=== PATIENT | male | born 1950 | race Caucasian/White ===

== ENCOUNTER 2016-08-02 22:47 | Inpatient (IN) | payer OTHER ==
--- NOTE | ~2016-08-02 | HP ---
Unit #: [id number] #: [id number] Patient: TOO MISTRY [id number] [address] [place], [place] [address] [id number] I MR#: [id number] NAME: TOO MISTRY. ROOM: 218 Age: 65 Sex: M Admission Date: 08/03/2016 : 1950 Attending Physician: Rufina Salguero M.D. Primary Care Physician: Simone Locke M.D. HISTORY AND PHYSICAL CHIEF COMPLAINT Right flank pain. HISTORY OF PRESENT ILLNESS The patient is a 65-year-old male with a history of chronic back pain who presents to the ER for above. Patient did abruptly develop some right-sided flank pain approximately 3 p.m. yesterday. The pain has worsened since that time. He describes the pain as sharp stabbing and is worse with movement. He has had some mild associated nausea but no emesis. He states he is very hungry and was tolerating food for the most part. His bowels have been moving normally without any melena or hematochezia. He denies any dysuria, hematuria or change in urinary frequency. He does endorse some intermittent heartburn but not frequently. Pain became so severe he presented to the emergency department at [facility]. Upon presentation to the ER vital signs revealed a mildly elevated blood pressure of 152/90 and pulse rate of 111. CT scan of the abdomen and pelvis revealed an enlarged gallbladder but no stones and no obstruction. CT also revealed some fat stranding around the liver near the duodenum and cirrhotic appearance to the liver. Patient was given 8 mg of morphine and subsequently sent for admission and will not his total bilirubin was elevated at 2.7 but is primarily indirect at 2.1. He also has mild transaminitis. He denies any fever at home. PAST MEDICAL HISTORY Chronic back and neck pain after a fall 16 years ago. He is currently on stability. HOME MEDICATIONS None. ALLERGIES Penicillin. PAST SURGICAL HISTORY None. FAMILY HISTORY Significant for heart disease in patient's brothers. SOCIAL HISTORY He stopped drinking at age 30. He does not smoke. He did previously work as a brush painter prior to disability. REVIEW OF SYSTEMS Unit #: [id number] #: [id number] Patient: TOO MISTRY Just complaining of right-sided flank pain, otherwise ten point review of systems was reviewed extensively and is negative. PHYSICAL EXAMINATION VITAL SIGNS: Temperature 98.2, blood pressure 149/80, pulse rate 102, respiratory rate 16, oxygen saturations are in the mid 90s on room air. GENERAL: Patient is awake, alert, and he is oriented x3. HEENT: Pupils equal, round, reactive to light bilaterally. Anicteric sclerae. No conjunctival pallor. Oropharynx with mildly dry mucous membranes. No erythema or exudate. NECK: Supple. No lymphadenopathy, no thyromegaly, no JVD. HEART: Mildly tachycardic but otherwise regular rhythm without murmur, rub or gallop. LUNGS: Clear to auscultation bilaterally. ABDOMEN: Soft, nontender, nondistended, positive bowel sounds. Negative Reich sign; however, there is point tenderness to the mid right flank. EXTREMITIES: No cyanosis, clubbing, or edema. Pedal pulses 2/4. SKIN: Warm, moist, without rash. NEUROLOGIC: Cranial nerves II-XII are intact. Sensation, strength and deep tendon reflexes are all grossly normal. PSYCHIATRIC: Alert and oriented x3. No suicidal or homicidal ideation. DIAGNOSTIC STUDIES LABORATORY: Lab work done in the emergency department reveals an elevated white blood cell count of 16.1, hemoglobin 16.7, platelet count of 197,000. Sodium 132, potassium 3.7, chloride 99, bicarb 23, BUN 13, creatinine 0.8, glucose 175. AST elevated at 44, ALT 53, alk phos 146. Bilirubin again total is 2.7, indirect is 2.1. Amylase and lipase are also normal. Also a lactic acid was 2.1. Urinalysis was also normal. IMAGING STUDIES: CT scan of the abdomen and pelvis in the emergency department did reveal (1) gallbladder, change in cirrhosis and stranding on the inferior portion of the liver, concerning for duodenitis. There was no evidence of free air and kidneys appear normal. ASSESSMENT 1. Right flank pain with dilated gallbladder, question atypical cholecystitis versus muscle, versus other. 2. Transaminitis with anatomic changes of cirrhosis. 3. Leukocytosis. 4. Chronic back pain. PLAN 1. Will admit patient to inpatient status. 2. I am going to start patient on IV fluids, keep him NPO, and check a HIDA scan. Will also ask LSA to evaluate. I will note labs are somewhat atypical for gallbladder etiology of his pain but his enlarged gallbladder sites may be a significant finding. Will also provide pain meds on a p.r.n. basis. 3. Will followup transaminitis and will check a viral hepatitis panel given lack of alcohol use within several decades of. In regards top patient's elevated bilirubin, I am going to recheck this morning in addition to checking an LDH. If indirect portion continues to be elevated, perhaps will need hematology evaluation. 4. Again pain meds for chronic back pain. 5. I will place him on empiric Flagyl until the evaluation of gallbladder is complete. 6. SCDs for DVT prophylaxis. Unit #: [id number] #: [id number] Patient: TOO MISTRY 1. Dictated by Rufina Salguero M.D. SHAUNNA/alla TD: 08/03/2016 06:45 JOB #: [id number] HISTORY AND PHYSICAL Page 1 of 1 X Rufina Salguero MD X HISTORY AND PHYSICAL
--- NOTE | ~2016-08-02 | DS ---
Unit #: [id number] #: [id number] Patient: TOO MISTRY [id number] [address] [place], [place] [address] [id number] I MR#: [id number] NAME: TOO MISTRY ROOM: 218 Age: 65 Sex: M Admission Date: 08/03/2016 : 1950 Discharge Date: 08/04/2016 Attending Physician: Jean Wen M.D. Primary Care Physician: Simone Locke M.D. DISCHARGE SUMMARY DISCHARGE DIAGNOSES 1. Acute pancreatitis. 2. Chronic cirrhosis. Hepatitis panel is pending. 3. Likely musculoskeletal pain in the right flank region. 4. Chronic back pain. 5. Leukocytosis. CONSULTANTS 1. [facility]. 2. Dr. Taylor. PROCEDURES None. DIAGNOSTIC STUDIES IMAGING: CT abdomen and pelvis with findings of hydropic, but otherwise normal, gallbladder. No biliary obstruction. Fat stranding along the inferior liver extending out from the laron hepatis. Fatty infiltration of the liver. The liver has a cirrhotic morphology. Small hypervascular lesion in the dome of the spleen, likely a benign lesion, such as a hemangioma. Unopacified GI tract is grossly normal. Trace nonspecific dependent free fluid in the pelvis. Right upper quadrant abdominal ultrasound. Impression - Increasing coarsened hepatic echotexture in keeping with cirrhosis as shown on the recent CT. No gallstones are seen. The common duct is prominent measuring up to 11 mm. Correlate with laboratory findings. Hepatomegaly. Pancreas obscured by bowel gas and not well seen. HIDA scan. Impression - Normal HIDA scan. LABS: This morning's labs include BMP with glucose of 183, BUN 12, creatinine 0.8, sodium 136, potassium 4.1, chloride 101, CO2 24, calcium 8.5, total protein 6.8, albumin 3.3, total bilirubin 2.3, AST 32, ALT 38, alkaline phosphatase 102, amylase of 22, lipase of 22. CBC with WBC of 19.1, RBC 4.85, hemoglobin 14.7, hematocrit 43.8, MCV 90.3, MCH 38.3, MCHC 33.5, RDW 13.3, platelets 148, MPV 9.7. . HOSPITAL COURSE The patient is a 65-year-old male with no significant past medical history except for chronic back pain who was seen in the emergency department due to right flank pain. When evaluated in the emergency department at [facility], he had mildly elevated blood pressure at 152/90 and pulse rate of 111. CT of abdomen and pelvis revealed an Unit #: [id number] #: [id number] Patient: TOO MISTRY enlarged gallbladder but no stones and no obstruction, as well as some fat stranding around the liver near the duodenum and cirrhotic in appearance. The patient was treated with morphine and admitted due to total bilirubin of 2.7 and indirect of 2.1. Patient was admitted for right flank pain and dilated gallbladder. Was treated with Flagyl and [facility] were consulted. Right upper quadrant ultrasound, as well as HIDA scan, was done with findings as stated above. Surgery felt that there was no surgical intervention; therefore, gastroenterology with Dr. Taylor was consulted for right flank pain and likely acute pancreatitis. At this time the patient is tolerating oral intake, tells me that his pain is not related to food and that actually the pain gets worse with bending, but with stretching of the right flank the pain actually improves. At this time we are awaiting Dr. Taylor's evaluation. If no additional workup is needed, the patient's right flank pain can be attributed to musculoskeletal in origin, and he will be discharged in stable condition to follow up with primary care physician within 1-[address] Taylor as needed for his cirrhotic disease. DISCHARGE CONDITION Stable. DISCHARGE ACTIVITY No restriction on activity. Patient to resume activities as prior to hospitalization with ambulation every day. DISCHARGE DIET Low-residual, low-fat diet. DISCHARGE MEDICATIONS 1. Flexeril 10 mg orally b.i.d. for the next 7 days. 2. Flagyl 500 mg orally t.i.d. for the next 6 days. 3. Grafton for pain 5/325 mg 1 tablet q.4-6 hours as needed for severe pain. Prescription (1) was given. Dictated by... Placido Kan PA-C for Roxie Barrow TD: 08/05/2016 10:12 JOB #: [id number] DISCHARGE SUMMARY Page 1 of 1 X X DISCHARGE SUMMARY
--- NOTE | ~2016-08-02 | OR ---
Unit #: [id number] #: [id number] Patient: TOO MISTRY [id number] [address] [place], [place] [address] [id number] I MR#: [id number] NAME: TOO MISTRY. ROOM: 218 Date of Procedure: 08/05/2016 Admission Date: 08/03/2016 Surgeon: Gerson Taylor M.D. : 1950 Attending Physician: Jean Wen M.D. Primary Care Physician: Simone Locke M.D. OPERATIVE REPORT PRIMARY CARE PHYSICIAN Simone Locke M.D. PREOPERATIVE DIAGNOSES Right upper quadrant and right-sided abdominal pain. The patient had a dilated common bile duct as well as fever. The purpose of the test is to look for any evidence of cholangitis and stone disease. PROCEDURES PERFORMED 1. Endoscopic retrograde cholangiopancreatography and sphincterotomy. 2. Endoscopic retrograde cholangiopancreatography and balloon sweep. POSTOPERATIVE DIAGNOSES 1. The patient had a dilated common bile duct about 10 mm; however, no stones were present. After a sphincterotomy, the duct was swept with a 9 to 12 mm retrieval balloon and no stones or debris were delivered. 2. The cystic duct could not be opacified on an occlusion cholangiogram. RECOMMENDATIONS The patient can be started on diet as tolerated and he can be discharged home later today if he had no other problems. An outpatient colonoscopy will be scheduled in the next few days. SEDATION USED MAC. DESCRIPTION OF PROCEDURE Following detailed explanation of potential risks and complications of an ERCP namely perforation, bleeding, and complications related to sedation and pancreatitis, the patient was brought to GI lab and laid in the left semiprone position. Sedation using MAC was given. Lateral-viewing duodenoscope was advanced through the oral cavity into the esophagus. The scope was then advanced into the gastric cavity. Pylorus was intubated in the usual fashion. The scope was advanced into deep descending duodenum. Upon shortening the scope, major papilla and ampullary area was visualized en face. The major papilla appeared normal. Using guidewire based cannulation technique, the common bile duct was cannulated. Contrast cholangiogram was obtained that showed dilated common bile duct about 10 to 11 mm. The intrahepatic biliary tree appeared normal; however, the cystic duct could not be opacified. A 1 cm sphincterotomy was then performed and the duct was swept with a 9 to 12 mm retrieval balloon at 9 to 10 mm pressures. No stones or debris were seen or delivered. The Unit #: [id number] #: [id number] Patient: TOO MISTRY cystic duct could not be opacified in the occlusion cholangiogram. The scope and the accessories were then withdrawn. The patient returned to the recovery area. He tolerated the procedure without any postprocedure complications. Dictated by... Roxie Nieto/anila TD: 08/05/2016 15:51 JOB #: [id number] CC: Rufina Salguero M.D. OPERATIVE REPORT Page 1 of 1 X Gerson Taylor MD X PROCEDURE OPERATIVE NOTE
--- NOTE | ~2016-08-02 | OR ---
Unit #: [id number] #: [id number] Patient: TOO MISTRY [id number] [address] [place], [place] [address] [id number] I MR#: [id number] NAME: TOO MISTRY. ROOM: 218 Date of Procedure: 08/05/2016 Admission Date: 08/03/2016 Surgeon: Gerson Taylor M.D. : 1950 Attending Physician: Jean Wen M.D. Primary Care Physician: Simone Locke M.D. OPERATIVE REPORT PRIMARY CARE PHYSICIAN Simone Locke M.D. PREOPERATIVE DIAGNOSIS Right-sided abdominal pain. PROCEDURE PERFORMED Upper gastrointestinal endoscopy. POSTOPERATIVE DIAGNOSES 1. The patient had [id number] prepyloric diffuse antral gastritis. A biopsy was obtained from the antrum for CLOtest. 2. Rest of the examination up to third part of duodenum was normal. RECOMMENDATIONS The patient is undergoing ERCP shortly. SEDATION USED MAC. DESCRIPTION OF PROCEDURE Following detailed explanation of potential risks and complications of an upper endoscopy, namely perforation, bleeding, and complication related to sedation, the patient was brought to GI lab and laid in the left lateral decubitus position. Lubricated tip of the Olympus video upper endoscope was passed through the bite block into the proximal esophagus under direct vision. The entire esophageal mucosa was examined and appeared normal. Z-line was nicely demarcated, there being no esophagitis or hiatus hernia. The scope was then advanced into the gastric cavity and the latter was insufflated. Mucosa of the fundus, body, and antrum was examined. The patient was noted to have diffuse moderate prepyloric antral erosive gastritis with erythema and erosions in the antral area. Pylorus was intubated with visualization of the normal duodenal bulb and second and third part of the duodenum. Upon withdrawal and retroflexion, incisura, cardia, and greater curve was examined and biopsy was obtained from the antrum for CLOtest. The scope was then withdrawn in the distal esophagus. The entire esophageal mucosa was examined all the way up to pharynx. No additional findings were noted. The patient tolerated the procedure without any postprocedure complications. Dictated by... Unit #: [id number] #: [id number] Patient: TOO MISTRYok Brandon, M.D. AK/anila TD: 08/05/2016 21:45 JOB #: [id number] CC: Roxie Eddy M.D. OPERATIVE REPORT Page 1 of 1 X Gerson Taylor MD X PROCEDURE OPERATIVE NOTE
--- NOTE | ~2016-08-02 | CR84 ---
[facility] A Service of [facility] & [facility] RADIOLOGY TEXT RESULTS PATIENT: TOO MISTRY LOCATION: C2A 218 : [birth year] UNIT #: [id number] AGE: [address]: Jean Wen MD SEX: M ORDER DR: [id number] [facility] [address] [facility]. [place], [place] [address] [id number] I MR#: [id number] Acc #: [id number] NAME: TOO MISTRY. : 1950 SEX: M STUDY DATE/TIME: 08/05/2016 7:08 UNIT: C2A ROOM: 218 STUDY DESCRIPTION: CR ERCP Biliary and Pancr SI Attending Physician: Jean Wen M.D. Ordering Physician: Gerson Taylor M.D. Primary Care Physician: Simone Locke M.D. MEDICAL IMAGING REPORT This report is preliminary unless electronic signature is present EXAM ERCP with fluoroscopy, 08/05/2016 HISTORY Abnormally dilated common bile duct. COMPARISON HIDA scan with Kinevac 08/03/2016. Right upper quadrant abdominal ultrasound 08/03/2016. CT abdomen and pelvis 08/03/2016. FINDINGS 6 spot fluoroscopic images were obtained during ERCP procedure performed Dr. Taylor. Fluoroscopy time 1 minute, 10 seconds was documented by the technologist. Contrast injected in the common bile duct demonstrates mild fusiform dilation with smooth tapered narrowing near the level of the annulus; however, no focal stricture or intraluminal mass lesion or filling defect is identified. No appreciable intrahepatic biliary ductal dilation is seen. According to brief endoscopist notes, balloon catheter was utilized, but no stones were extracted. Sphincterotomy was performed. Pancreatic duct was not sought. Please refer to the endoscopist report for additional findings and recommendations. Dictated by... Krupa Irizarry M.D. THIS IS AN ELECTRONICALLY VERIFIED REPORT Krupa Irizarry M.D. at 08/06/2016 7:04 AM SMILEY/jhony TD: 08/05/2016 14:30 [facility] A Service of [facility] & [facility] RADIOLOGY TEXT RESULTS PATIENT: TOO MISTRY LOCATION: [place] [address] : [birth year] UNIT #: [id number] AGE: [address]: Jean Wen MD SEX: M ORDER DR: JOB #: [id number] MEDICAL IMAGING REPORT Page 1 of 1 COPY
--- NOTE | ~2016-08-02 | CO ---
Unit #: [id number] #: [id number] Patient: TOO MISTRY [id number] [address] [address] [id number] I MR#: [id number] NAME: TOO MISTRY. ROOM: 218 Age: 65 Sex: M Admission Date: 08/03/2016 : 1950 Attending Physician: Jean Wen M.D. Primary Care Physician: Simone Locke M.D. Consultation Date: 08/04/2016 CONSULTATION REPORT DICTATED FOR Gerson Taylor M.D. PRIMARY CARE PHYSICIAN Simone Locke M.D. REASON FOR CONSULTATION Abdominal pain, elevated LFTs, and possible cirrhosis. HISTORY OF PRESENT ILLNESS The patient is a very pleasant 65-year-old male with history of chronic back pain. The patient has presented with acute onset of right-sided abdominal pain. The patient describes pain as stabbing, worse with movement and ambulation. He has mild nausea, but otherwise no fever or chills, jaundice, diarrhea, or constipation; overt gastrointestinal blood loss in form of hematemesis, melena, or hematochezia. His appetite and weight are unchanged. Initial laboratory results show mild transaminitis and mildly elevated bilirubin, mostly indirect. The patient has been evaluated by LSA for possible acute cholecystitis. Abdominal ultrasound show hepatomegaly, dilated common bile duct, and also suggestive of possible cirrhosis. HIDA scan was normal. PAST MEDICAL HISTORY Chronic back and neck pain. HOME MEDICATIONS None. ALLERGIES Penicillin. PAST SURGICAL HISTORY None. FAMILY HISTORY None for colon, pancreatic cancer, or liver disease. SOCIAL HISTORY The patient is on disability secondary to chronic neck and back pain. He does not smoke. Denies alcohol or illicit drug use. REVIEW OF SYSTEMS A 12-point review of systems was done and is negative except for pertinent findings noted in HPI. Unit #: [id number] #: [id number] Patient: TOO MISTRY PHYSICAL EXAMINATION GENERAL: The patient is awake, alert, and oriented. Appears comfortable in no acute distress. VITAL SIGNS: Stable with temperature 98.8, blood pressure 163/97, heart rate 105, respirations 20. HEENT: There is no scleral icterus. No lymphadenopathy. No peripheral edema. CARDIOVASCULAR: Regular rate and rhythm. LUNGS: Clear to auscultation bilaterally. ABDOMEN: Soft. Nondistended. Mild tenderness with palpation in right upper quadrant and right lower quadrant. Bowel sounds normal. Mild hepatomegaly noted. DIAGNOSTIC STUDIES LABORATORY RESULTS: Complete metabolic panel notable for glucose 175, sodium 132. AST 44, ALT 53, alkaline phosphatase 146, total bilirubin 2.7 with indirect bilirubin 2.1. Lipase and amylase are normal. Albumin 3.4. INR 1.3. CBC; WBC 19.1, hemoglobin 14.7, platelet 148. Hepatitis panel is pending at this time. IMAGING STUDIES: CT of abdomen and pelvis show a hydropic gallbladder. No biliary obstruction. There is fatty infiltration of the liver and the liver has a cirrhotic morphology. Abdominal ultrasound showed hepatomegaly, no gallstones, but common bile duct dilated up to 11 mm. HIDA scan was normal. ASSESSMENT 1. Right-sided abdominal pain. 2. Common bile duct dilation. 3. Elevated LFTs. 4. Possible cirrhosis. 5. Leukocytosis. PLAN The patient with persistent right-sided abdominal pain with common bile duct dilation and possible cirrhosis and ERCP is recommended to rule out cholangitis, common bile duct stricture, and common bile duct stone. A colonoscopy is also recommended as the patient has never had exam before. Colonoscopy can be arranged as an outpatient. We will also obtain DONITA, smooth muscle antibodies, and ferritin level along with repeating CMP. The patient and plan of care discussed in detail with Dr. Taylor. Further recommendations to follow. Thank you very much for asking us to see this patient. We appreciate the consult. Dictated by... SATYA Hills/anila TD: 08/08/2016 03:12 JOB #: [id number] Unit #: [id number] #: [id number] Patient: TOO MISTRY CONSULTATION REPORT Page 1 of 1 X X CONSULTATION REPORT
--- NOTE | ~2016-08-02 | NM21 ---
[facility] A Service of [facility] & [facility] RADIOLOGY TEXT RESULTS PATIENT: TOO MISTRY LOCATION: [facility] [address] : [birth year] UNIT #: [id number] AGE: [address]: Jean Wen MD SEX: M ORDER DR: [id number] [facility] [address] [facility]. [place], [place] [address] [id number] I MR#: [id number] Acc #: [id number] NAME: TOO MISTRY : 1950 SEX: M STUDY DATE/TIME: 08/03/2016 11:43 UNIT: [facility] ROOM: [facility] STUDY DESCRIPTION: NM Hepatobiliary W GB Attending Physician: Jean Wen M.D. Ordering Physician: Rufina Salguero M.D. Primary Care Physician: Simone Locke M.D. MEDICAL IMAGING REPORT This report is preliminary unless electronic signature is present EXAM HIDA scan 08/03/2016 HISTORY Right upper quadrant abdominal pain, heartburn, appetite loss and early satiety since 08/01/2016. FINDINGS The patient received an intravenous injection of 5.62 mCi of technetium 99m tagged Choletec for hepatobiliary imaging. There is homogeneous distribution of the radiotracer throughout the liver. Gallbladder activity was seen by 30 minutes postinjection of the radiopharmaceutical. IMPRESSION Normal HIDA scan. Dictated by... Prosper Stark M.D. THIS IS AN ELECTRONICALLY VERIFIED REPORT Prosper Stark M.D. at 08/05/2016 8:16 AM JASSI/flavio TD: 08/03/2016 14:00 JOB #: [id number] MEDICAL IMAGING REPORT Page 1 of 1 COPY
--- NOTE | ~2016-08-02 | CT2 ---
[facility] A Service of [facility] & [facility] RADIOLOGY TEXT RESULTS PATIENT: TOO MISRTY LOCATION: C2A : 50 UNIT #: [id number] AGE: [address]: Jean Wen MD SEX: M ORDER DR: [id number] [facility] [address]. [place], [place] [address] [id number] I MR#: [id number] Acc #: [id number] NAME: TOO MISTRY. : 1950 SEX: M STUDY DATE/TIME: 08/05/2016 14:14 UNIT: C2 ROOM: 218 STUDY DESCRIPTION: CT Abd and Pelv W Cont Attending Physician: Jean Wen M.D. Ordering Physician: Jean Wen M.D. Primary Care Physician: Simone Locke M.D. MEDICAL IMAGING REPORT This report is preliminary unless electronic signature is present EXAM CT of the abdomen and pelvis with contrast INDICATIONS Right flank pain since August 01, [address] images were obtained from the diaphragm through the symphysis pubis following the administration of oral and intravenous contrast material. This CT exam was performed with one or more of the following radiation dose reduction techniques: automatic control, adjustment of mA and/or kV according to patient size, and iterative reconstruction. FINDINGS Images through the lung bases demonstrate trace right pleural effusion, which has developed since the prior study. There is also some increasing right basilar atelectasis as well as some mild left basilar atelectasis which has also increased. Patient has a cirrhotic morphology to the liver although I do not see any definite evidence of portal hypertension. There is also diffuse hepatic steatosis. No focal hepatic lesions are seen. Patient does have cholelithiasis. Spleen measures within normal size limits and does have an enhancing lesion located superiorly which may reflect a benign lesion such as a hemangioma. There are some prominent gastrohepatic ligament nodes for example 1 measures up to 1.3 x 1.8 cm. This may simply reflect a reactive node especially given patient's cirrhosis. It does appear larger than on prior study when it measured about 1.2 x 1.1 cm. Patient does have pneumobilia likely reflecting prior sphincterotomy. Pancreas is atrophic on prior examination. Patient was noted to have a small amount of fluid seen adjacent to the duodenum. This is again noted on today's examination. Some additional fluid track along the inferior margin of the liver. This actually appears improved when compared to the prior study. There is some gallbladder wall edema and air within the gallbladder again likely related to recent sphincterotomy, [facility] A Service of [facility] RADIOLOGY TEXT RESULTS PATIENT: TOO MISTRY LOCATION: C2A 218-01 : 50 UNIT #: [id number] AGE: [address]: Jean Wen MD SEX: M ORDER DR: gallbladder, however is not distended on today's study. Duodenum I think probably is somewhat thick-walled. This is involving the second portion of the duodenum and certainly could reflect some peptic ulcer disease. I do not see any definite extraluminal gas. Kidneys appear unremarkable. Prostate gland measures within normal size limits. There is a small amount of free fluid within the pelvis. This has increased when compared to the prior study. There is no evidence of mechanical bowel obstruction. Review of bony windows demonstrates some discogenic degenerative disease. I do not see any aggressive osseous abnormalities. IMPRESSION 1. This patient is again noted to have some fluid and stranding seen around the duodenum, this is probably stable when compared to the prior study from August 03, 2016. Although some additional fluid seen tracking adjacent to the right lobe of the liver appears to have improved. I think overall the duodenum does appear thick-walled and findings certainly could reflect peptic ulcer disease. Correlation with clinical presentation is suggested, process does appear to be separate from the pancreas, although certainly pancreatitis would be another consideration. 2. Patient is now noted have pneumobilia likely related to recent sphincterotomy. There is also air identified within the gallbladder again related to recent procedure this patient does have cholelithiasis and there is some gallbladder wall edema on today's study. This is new when compared to the prior exam although the gallbladder is no longer distended. Patient did have a HIDA scan, 2 days ago which did not show any evidence of cystic duct obstruction. 3. Cirrhotic morphology to the liver. 4. Small right pleural effusion. This has increased when compared to the prior study. There is worsening atelectasis noted at both lung bases. 5. Probable splenic hemangioma. 6. Patient does have some prominent gastrohepatic and portocaval nodes. Gastrohepatic ligament node appears larger than on prior study and is probably reactive. These enlarged nodes may be related to this patient's cirrhosis. 7. Small amount of free fluid within the pelvis is increased slightly when compared to the prior study. 8. Please see the body of the report for any other additional incidental findings. Dictated by... Annabelle Akers M.D. THIS IS AN ELECTRONICALLY VERIFIED REPORT Annabelle Akers M.D. at 08/06/2016 1:00 PM AFF/rnr TD: 08/05/2016 15:46 [facility] A Service of [facility] & [facility] RADIOLOGY TEXT RESULTS PATIENT: TOO MISTRY LOCATION: [place] [address]- : 50 UNIT #: [id number] AGE: [address]: Jean Wen MD SEX: M ORDER DR: JOB #: [id number] MEDICAL IMAGING REPORT Page 1 of 1 COPY
--- NOTE | ~2016-08-02 | EKG ---
PATIENT: TOO MISTRY UNIT #: [id number] Ventricular Rate: 86 BPM Atrial Rate: 86 BPM P-R Interval: 166 ms QRS Duration: 78 ms Q-T Interval: 384 ms QTC Calculation(Bezet): 459 ms P [place]: 48 degrees Calculated R [place]: -15 degrees Calculated T [place]: 0 degrees Diagnosis Line: Normal sinus rhythm Diagnosis Line: Normal ECG Diagnosis Line: No previous ECGs available Diagnosis Line: Confirmed by BRANDIE KIM MD ([id number]) on 08/03/2016 Diagnosis Line: 11:00:03 PM INTERPRETING MD: JULIO TAMEZ
--- NOTE | ~2016-08-02 | US6 ---
[facility] A Service of [facility] RADIOLOGY TEXT RESULTS PATIENT: TOO MISTRY LOCATION: [facility] : 50 UNIT #: [id number] AGE: [address]: Jean Wen MD SEX: M ORDER DR: [id number] [facility] [address] [facility]. [place], [place] [address] [id number] I MR#: [id number] Acc #: [id number] NAME: TOO MISTRY : 1950 SEX: M STUDY DATE/TIME: 08/03/2016 9:38 UNIT: A ROOM: 218 STUDY DESCRIPTION: US Abdominal Limited Attending Physician: Jean Wen M.D. Ordering Physician: Brayan Nolen M.D. Primary Care Physician: Simone Locke M.D. MEDICAL IMAGING REPORT This report is preliminary unless electronic signature is present EXAM Right upper quadrant abdominal ultrasound INDICATIONS Right flank pain for the past 3 days. PROCEDURE Park-scale and Doppler imaging right upper quadrant of the abdomen. COMPARISON CT from 08/03/2016 FINDINGS Pancreas is obscured and not well seen. The liver measures 20.6 cm and has diffusely increased in coarsened echotexture. No liver mass is seen on submitted images. Unremarkable gallbladder. Common duct measures 9 mm. Right kidney measures 11 cm and is unremarkable. Another image of the common duct measures up to 11 mm. IMPRESSION 1. Increasing coarsened hepatic echotexture in keeping with cirrhosis as shown on the recent CT. 2. No gallstones are seen. The common duct is prominent measuring up to 11 mm. Correlate with laboratory values. 3. Hepatomegaly. 4. Pancreas obscured by bowel gas and not well seen. Dictated by... Renaldo Luna M.D. THIS IS AN ELECTRONICALLY VERIFIED REPORT Renaldo Luna M.D. at 08/04/2016 7:11 AM EED/bd [facility] A Service [facility] RADIOLOGY TEXT RESULTS PATIENT: TOO MISTRY LOCATION: [facility] 218-01 : 50 UNIT #: [id number] AGE: [address]: Jean Wen MD SEX: M ORDER DR: TD: 08/03/2016 13:33 JOB #: [id number] MEDICAL IMAGING REPORT Page 1 of 1 COPY
--- NOTE | ~2016-08-02 | CT2 ---
[facility] A Service of [facility] & [facility] RADIOLOGY TEXT RESULTS PATIENT: TOO MISTRY LOCATION: [facility] 218-01 : 50 UNIT #: [id number] AGE: [address]: Jean Wen MD SEX: M ORDER DR: [id number] [place] [address] [id number] I MR#: [id number] Acc #: [id number] NAME: TOO MISTRY. : 1950 SEX: M STUDY DATE/TIME: 08/02/2016 UNIT: SEDOF ROOM: [id number] STUDY DESCRIPTION: CT Abd and Pelv W Cont Attending Physician: Rufina Salguero M.D. Ordering Physician: Physician Non-Staff Primary Care Physician: Simone Locke M.D. MEDICAL IMAGING REPORT This report is preliminary unless electronic signature is present. EXAM ct abdomen and pelvis 08/03 00:19 hours INDICATIONS Right upper quadrant abdominal pain for the last 24 hours. Pain is currently 10 out of 10. TECHNIQUE Axial images were obtained through the abdomen and pelvis following IV contrast administration. multiplanar reformats were obtained. No comparison. The CT exam was performed with one or more of the following radiation dose reduction techniques: automatic exposure control, adjustment of mA and/or kV according to patient size, and iterative reconstruction. FINDINGS Abdomen: There is some atelectasis in the lower lobes. The gallbladder is hydropic with a short-axis diameter of 5.2 cm. Gallbladder is otherwise normal. No biliary obstruction is seen. There is fatty infiltration of the liver. Additionally, the liver has a cirrhotic morphology. Please correlate with history. There is a hypervascular lesion in the dome of the spleen which is nonspecific. It measures about 12 mm in size. This is likely a small hemangioma. Remaining solid organs are normal. There is fat stranding extending from the laron hepatis below the liver. Given that the pancreas has a normal appearance, this may be fat stranding from duodenitis and peptic ulcer disease. No free air is seen. The unopacified GI tract is normal. Pelvis: Urinary bladder is normal. Trace amount of free fluid is noted dependently. The unopacified GI tract is normal. There is degenerative STS. [facility] A Service of [facility] & [facility] RADIOLOGY TEXT RESULTS PATIENT: TOO MISTRY LOCATION: [facility] 218-01 : 50 UNIT #: [id number] AGE: [address]: Jean Wen MD SEX: M ORDER DR: disease in the lumbar spine. IMPRESSION 1. Hydropic but otherwise normal gallbladder. No biliary obstruction. 2. There is fat stranding along the inferior liver extending out from the laron hepatis. The adjacent pancreas appears normal. This may be secondary to duodenitis and peptic ulcer disease. No free air is seen. Please correlate with laboratory data to completely exclude pancreatitis. 3. Fatty infiltration of the liver. The liver has a cirrhotic morphology. Correlate with history. 4. Small hypervascular lesion in the dome of the spleen. While nonspecific, this is likely a benign lesions such as a hemangioma. 5. Unopacified GI tract is grossly normal. 6. Trace nonspecific dependent free fluid in the pelvis. Dictated by... Lee Garcia Jr., M.D. THIS IS AN ELECTRONICALLY VERIFIED REPORT Lee Garcia Jr., M.D. at 08/03/2016 11:14 AM EMERSON/hemant TD: 08/03/2016 07:43 JOB #: [id number] MEDICAL IMAGING REPORT Page 1 of 1
--- NOTE | ~2016-08-02 | DS ---
Unit #: [id number] #: [id number] Patient: TOO MISTRY [id number] [place] [id number] [facility]. [place], [place] [address] [id number] I MR#: [id number] NAME: TOO MISTRY. ROOM: 218 Age: 65 Sex: M Admission Date: 08/03/2016 : 1950 Discharge Date: 08/05/2016 Attending Physician: Jean Wen M.D. Primary Care Physician: Simone Locke M.D. DISCHARGE SUMMARY ADDENDUM Since the time of dictation, the patient was seen by gastroenterology with Dr. Taylor who did an ERCP. Following this, the patient's leukocytosis has significantly dropped from 19,000 to 9000. The patient has tolerated a regular diet. He states that his right flank pain is manageable and stable to be discharged home. he did have a repeat CT abdomen and pelvis with oral and IV contrast per general surgery's recommendations which, overall, states that there still does appear to be pancreatitis but there is improvement. The gallbladder does have cholelithiasis and there is some gallbladder wall edema but the gallbladder is no longer distended. The CT of the abdomen and pelvis reading was conveyed to Dr. Nolen with general surgery. As patient is stable at this time, he is discharged home in stable condition. He will follow up with Dr. Taylor for colonoscopy on 08/19/16. I recommend that patient follow up with [facility] for any further assessment for possible cholecystectomy with his cholelithiasis. DISCHARGE MEDICATIONS Remains unchanged. LABS BMP with glucose of 122, BUN 18, creatinine 0.8, sodium 138, potassium 3.5, chloride 103, CO2 26, magnesium 2.0, total protein 6.4, albumin 3.8, total bilirubin with 0.9, drastic drop from yesterday of 2.7. AST of 30, ALT of 29, alkaline phos. of 80. CBC with WBC of 9.1, RBC 4.37, hemoglobin 13.2, hematocrit 39.5, MCV is 90.4, MCH 30.2, MCHC 33.4, RDW 13.1, platelets of 115, MPV is 9.2. Dictated by... Placido Kan PA-C for Roxie Barrow TD: 08/07/2016 07:49 JOB #: [id number] Unit #: [id number] #: [id number] Patient: TOO MISTRY DISCHARGE SUMMARY Page 1 of 1 X X DISCHARGE SUMMARY
--- NOTE | ~2016-08-02 | CO ---
Unit #: [id number] #: [id number] Patient: TOO CLIFFORD [id number] [address] [place], [place] [address] [id number] I MR#: [id number] NAME: TOO CLIFFORD ROOM: 218 Age: 65 Sex: M Admission Date: 08/03/2016 : 1950 Attending Physician: Jean Wen M.D. Primary Care Physician: Simone Locke M.D. CONSULTATION REPORT HISTORY OF PRESENT ILLNESS Mr. Clifford is a 65-year-old white male, slightly obese, disabled, who noted over the last 48 hours increasingly increasing right flank pain with guarding. He was noted in the emergency department to have elevated white blood cell count and slightly elevated liver function tests. He was also noted to have a CT scan, which showed dilated gallbladder, no stones with stranding of the duodenum and possible cirrhosis. He is a nondrinker. ALLERGIES This patient is allergic to penicillin. MEDICATIONS He is on no current medications except for p.r.n. pain medication. REVIEW OF SYSTEMS Denies any cardiovascular, respiratory, renal, metabolic diseases. SOCIAL HISTORY He is a nonsmoker and nondrinker. No illicit drug use. He says he has diabetes, but is diet controlled. He also complains of arthritis in his back. PHYSICAL EXAMINATION GENERAL: Cooperative alert white male. VITAL SIGNS: Temperature 99 degrees, pulse 100, blood pressure 150/90, respirations 14. HEENT: ENT is clear. There is no jaundice. Pupils are equal, reactive to light and accommodation. NECK: Supple. No masses. No tenderness. CHEST: Distant breath sounds and heart sounds. No audible murmurs. ABDOMEN: Slightly distended, although the patient says this is his normal size abdomen. He has some diffuse tenderness, but no real true peritoneal signs. All of his guarding and increased pain are in the right flank localized to that area. He does not have any right CVA tenderness and he does not have any significant right upper quadrant tenderness. The patient says he has been hungry and has been able to eat. EXTREMITIES: Full range of motion. 1+ peripheral pulse bilaterally. No significant edema. IMPRESSION This patient has right flank abdominal pain. Etiology is unclear. It could be related to his gallbladder or peptic ulcer disease. We will do ultrasound, HIDA scan and do plus-minus esophagogastroduodenoscopy due to Unit #: [id number] #: [id number] Patient: TOO CLIFFORD CT scan findings. We will see the patient back for followup within the next 12 to 24 hours. Dictated by... Roxie Eddy/anila TD: 08/03/2016 07:26 JOB #: [id number] CONSULTATION REPORT Page 1 of 1 X Brayan Nolen MD X CONSULTATION REPORT
--- NOTE | ~2016-08-02 | DS ---
Unit #: [id number] #: [id number] Patient: TOO MISTRY [id number] [address] [address] [id number] I MR#: [id number] NAME: TOO MISTRY ROOM: 218 Age: Sex: M Admission Date: 08/03/2016 : 1950 Discharge Date: Attending Physician: Jean Wen M.D. Primary Care Physician: Simone Locke M.D. DISCHARGE SUMMARY ADDENDUM DISCHARGE DIAGNOSES (addition) Seizures with tachycardia and leukocytosis. We are treating for presumed intraabdominal with a dilated common bile duct with Flagyl. The patient does not appear acutely ill and he has not been febrile during this hospitalization. We will follow up on the patient's blood culture. Dictated by... Placido Kan PA-C for Roxie Barrow/carolyne TD: 08/05/2016 09:59 JOB #: [id number] DISCHARGE SUMMARY Page 1 of 1 X X DISCHARGE SUMMARY
[~2016-08-02 22:47] MED LIST: BACLOFEN10 MG PO; FLEXERIL10 M1 PO; FLEXERIL10 MG; IBUPROFEN600 MG PO; MEDROL DOSEPAK4 MG PO; MEDROL4 MG/DOSE- PO; NASONEX17 GM; NO MEDICATIONS; PREDNISONE; PREDNISONE50 MG; TYLENOL #3 PO; VICODIN 5/1 TAB 5/50 PO; ZITHROMAX PO
[2016-08-02 23:16] LABS: BASOPHIL# 0.2 X10e3 (0-0.3); BASOPHIL% 0.9 % (0-2.5); EOSINOPHIL% 0.2 % (0.0-7.0); HEMATOCRIT 48.4 % (38.0-50.0); HEMOGLOBIN 16.7 gm/dL (13.0-16.0); LYMPHOCYTE# 2.2 X10e3 (1.0-3.5); LYMPHOCYTE% 13.9 % (17.0-45.0); MEAN CELL VOLUME 88.4 FL (83-96); MEAN CORPUSCULAR HEMOGLOBIN 30.6 PG (28-34); MEAN CORPUSCULAR HGB CONC 34.6 g/dL (30-36); MEAN PLATELET VOLUME 8.6 FL (6.5-11.5); MONOCYTE# 1.7 X10e3 (0-1.0); MONOCYTE% 10.7 % (3.0-12.0); NEUTROPHIL# 11.9 X10e3 (1.5-7.1); NEUTROPHIL% 74.3 % (40-75); PLATELET COUNT 197 X10e3 (140-420); RED BLOOD COUNT 5.47 X10e (3.90-5.60); RED CELL DISTRIBUTION WIDTH 13.3 % (11.0-15.5); WHITE BLOOD COUNT 16.1 X10e3 (4.0-10.5)
[2016-08-02 23:18] LABS: DIFF IND NO
[2016-08-02 23:33] LABS: BILIRUBIN, DIRECT 0.6 mg/dL (0.0-0.2); BILIRUBIN,INDIRECT 2.1 mg/dL (0.0-0.9); BILIRUBIN,TOTAL 2.7 mg/dL (0.2-2.0); BUN/CREATININE RATIO 16.25; CALCIUM SERUM 8.7 mg/dL (8.4-10.2); CREATININE SERUM 0.8 mg/dL (0.6-1.4); GLOM FILT RATE Estimated 93.8 mL/min (>60); POTASSIUM 3.7 mmol/L (3.5-5.1); PROTEIN TOTAL SERUM 8.3 g/dL (6.0-8.3)
[2016-08-03 01:26] LABS: URINE SOURCE CLEAN CATCH
[2016-08-03 01:29] LABS: MICRO INDICATED? NO; URINE APPEARANCE CLEAR; URINE BILIRUBIN NEG (NEG); URINE BLOOD NEG (NEG); URINE COLOR YELLOW; URINE GLUCOSE NEG (NORM); URINE KETONE NEG (NEG); URINE LEUKOCYTE ESTERASE NEG (NEG); URINE NITRATE NEG (NEG); URINE PH 5.5 (5-8); URINE PROTEIN NEG (NEG); URINE SPECIFIC GRAVITY <=1.005 (1.003-1.035)
[2016-08-03 06:36] LABS: HEMATOCRIT 44.5 % (38.0-50.0); HEMOGLOBIN 14.9 gm/dL (13.0-16.0); MEAN CELL VOLUME 89.8 FL (83-96); MEAN CORPUSCULAR HEMOGLOBIN 30.1 PG (28-34); MEAN CORPUSCULAR HGB CONC 33.5 g/dL (30-36); MEAN PLATELET VOLUME 8.7 FL (6.5-11.5); RED BLOOD COUNT 4.96 X10e (3.90-5.60); RED CELL DISTRIBUTION WIDTH 13.2 % (11.0-15.5); WHITE BLOOD COUNT 14.8 X10e3 (4.0-10.5)
[2016-08-03 07:33] LABS: ALBUMIN SERUM 3.4 g/dL (3.5-5.0); BILIRUBIN, DIRECT 0.6 mg/dL (0.0-0.2); BILIRUBIN,INDIRECT 2.2 mg/dL (0.0-0.9); BILIRUBIN,TOTAL 2.8 mg/dL (0.2-2.0); BUN/CREATININE RATIO 18.57; CALCIUM SERUM 8.5 mg/dL (8.4-10.2); CREATININE SERUM 0.7 mg/dL (0.6-1.4); GLOM FILT RATE Estimated 99.1 mL/min (>60); PROTEIN TOTAL SERUM 6.9 g/dL (6.0-8.3)
[2016-08-03 07:40] LABS: INR 1.3; PROTHROMBIN TIME (PATIENT) 13.6 SECONDS (9.6-11.5)
[2016-08-04 09:07] LABS: HEMATOCRIT 43.8 % (38.0-50.0); HEMOGLOBIN 14.7 gm/dL (13.0-16.0); MEAN CELL VOLUME 90.3 FL (83-96); MEAN CORPUSCULAR HEMOGLOBIN 30.3 PG (28-34); MEAN CORPUSCULAR HGB CONC 33.5 g/dL (30-36); MEAN PLATELET VOLUME 9.7 FL (6.5-11.5); RED BLOOD COUNT 4.85 X10e (3.90-5.60); RED CELL DISTRIBUTION WIDTH 13.3 % (11.0-15.5); WHITE BLOOD COUNT 19.1 X10e3 (4.0-10.5)
[2016-08-04 09:35] LABS: ALBUMIN SERUM 3.3 g/dL (3.5-5.0); BILIRUBIN,TOTAL 2.3 mg/dL (0.2-2.0); CALCIUM SERUM 8.5 mg/dL (8.4-10.2); CREATININE SERUM 0.8 mg/dL (0.6-1.4); GLOM FILT RATE Estimated 93.8 mL/min (>60); POTASSIUM 4.1 mmol/L (3.5-5.1); PROTEIN TOTAL SERUM 6.8 g/dL (6.0-8.3)
[2016-08-05 00:21] LABS: HA AB IGM (HEPPAN) Nonreactive (()); HB CORE AB IGM (HEPPAN) Nonreactive (Nonreactive); HB S AG (HEPPAN) Nonreactive (Nonreactive); HEP C AB (HEPPAN) Nonreactive (Nonreactive); HEP C AB SIGNAL TO CUTOFF 0.01 ratio (<1.00)
[2016-08-05 07:16] LABS: HEMATOCRIT 39.5 % (38.0-50.0); HEMOGLOBIN 13.2 gm/dL (13.0-16.0); MEAN CELL VOLUME 90.4 FL (83-96); MEAN CORPUSCULAR HEMOGLOBIN 30.2 PG (28-34); MEAN CORPUSCULAR HGB CONC 33.4 g/dL (30-36); MEAN PLATELET VOLUME 9.2 FL (6.5-11.5); RED BLOOD COUNT 4.37 X10e (3.90-5.60); RED CELL DISTRIBUTION WIDTH 13.1 % (11.0-15.5)
[2016-08-05 07:23] LABS: WHITE BLOOD COUNT 9.1 X10e3 (4.0-10.5)
[2016-08-05 08:02] LABS: ALBUMIN SERUM 2.8 g/dL (3.5-5.0); BILIRUBIN,TOTAL 0.9 mg/dL (0.2-2.0); BUN/CREATININE RATIO 22.5; CALCIUM SERUM 8.2 mg/dL (8.4-10.2); CREATININE SERUM 0.8 mg/dL (0.6-1.4); GLOM FILT RATE Estimated 93.8 mL/min (>60); POTASSIUM 3.5 mmol/L (3.5-5.1); PROTEIN TOTAL SERUM 6.4 g/dL (6.0-8.3)
[2016-08-05] MEDS ORDERED: FLAGYL PO (08:42)
[2016-08-05] MEDS ORDERED: FLEXERIL10 MG PO (08:43)
[2016-08-05] MEDS ORDERED: LORCET 5-325 M1 EACH PO (16:33)
[2016-08-07 20:52] LABS: ANA SCREEN Negative (Negative)
== END 2016-08-05 16:56 | disposition home or self-care (01) | DRG 439 ==
LOC: SED 22:47 → C2A 08-03 04:20
PROVIDERS: Internal Medicine; Internal Medicine Gastroenterology; Nurse Practitioner; Physician Assistant; Physician Assistant Medical; Surgery
PROC: 0DB68ZX Excision of Stomach, Via Natural or Artificial Opening Endoscopic, Diagnostic (ICD-10-PCS; principal; 2016-08-03)
PROC: 0F798ZZ Dilation of Common Bile Duct, Via Natural or Artificial Opening Endoscopic (ICD-10-PCS; 2016-08-05 07:30)
DX: K85.90 Acute pancreatitis without necrosis or infection, unspecified (principal); R65.10 Systemic inflammatory response syndrome (SIRS) of non-infectious origin without acute organ dysfunction; E87.2 Acidosis; K74.60 Unspecified cirrhosis of liver; K83.8 Other specified diseases of biliary tract; R56.9 Unspecified convulsions; M54.9 Dorsalgia, unspecified; M54.2 Cervicalgia; G89.29 Other chronic pain; Z88.0 Allergy status to penicillin; K29.50 Unspecified chronic gastritis without bleeding; K80.20 Calculus of gallbladder without cholecystitis without obstruction; R00.0 Tachycardia, unspecified; E66.9 Obesity, unspecified; Z68.28 Body mass index [BMI] 28.0-28.9, adult
CPT/HCPCS: 36415; 74177; 74330; 76705; 78226; 80048; 80053; 80074; 80076; 81003; 82150; 82247; 82248; 82728; 82947; 83516; 83605; 83615; 83690; 83735; 85025; 85027; 85610; 86038; 86039; 87040; 87077; 93005; 96361; 96374; 96375; 99285; A9537; C9113; J1170; J1885; J2250; J2270; J2405; J3010; Q9967

== ENCOUNTER 2016-12-19 11:06 | Emergency (ER) | payer OTHER ==
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
[~2016-12-19 11:06] MED LIST changes: +FLAGYL PO; +FLEXERIL10 MG PO; +LORCET 5-325 M1 EACH PO
[2016-12-19] MEDS ORDERED: NO MEDICATIONS (11:22)
== END 2016-12-19 13:00 | disposition home or self-care (01) ==
LOC: SED 11:06
DX: S16.1XXA Strain of muscle, fascia and tendon at neck level, initial encounter (principal); S39.012A Strain of muscle, fascia and tendon of lower back, initial encounter; Z88.0 Allergy status to penicillin; V43.52XA Car driver injured in collision with other type car in traffic accident, initial encounter
CPT/HCPCS: 72040; 96372; 99283; J1885